=== PATIENT | male | born 1995 | race Caucasian/White ===

== ENCOUNTER 2017-01-10 08:53 | Inpatient (IN) | payer BC ==
[~2017-01-10] VITALS: Ht 188 cm; Wt 88.5 kg
--- NOTE | 2017-01-10 08:56 | NUR ---
Dr Reyes at the bedside for eval and exam.
[2017-01-10] MEDS ORDERED: IV NORMAL SALINE 1000 ML BAG IV ONE ×2 (09:00→10:15)
[2017-01-10 09:12] LABS: BASOPHILS % (AUTO) 0.8 % (0.0-2.0); EOSINOPHILS % (AUTO) 0.3 % (0.0-7.0); HEMATOCRIT 42.4 % (40-50); HEMOGLOBIN 14.3 G/DL (14.0-18.0); LYMPHOCYTES # (AUTO) 0.8 K/UL (0.8-4.8); LYMPHOCYTES % (AUTO) 17.5 % (20.5-51.5); MEAN CORPUSCULAR HEMOGLOBIN 29.1 UUG (27.0-31.0); MEAN CORPUSCULAR HGB CONC 34 g/dL (32.0-37.0); MEAN CORPUSCULAR VOLUME 86.6 FL (82.0-92.0); MONOCYTES # (AUTO) 0.3 K/UL (0.1-1.30); MONOCYTES % (AUTO) 6.2 % (0.0-11.0); NEUTROPHILS # (AUTO) 3.2 K/UL (1.8-8.9); NEUTROPHILS % (AUTO) 75.2 % (38.5-71.5); PLATELET COUNT (AUTO) 136 K/UL (150-450); RED BLOOD CELL COUNT(AUTO) 4.89 MIL/UL (4.7-6.1); WHITE BLOOD COUNT (AUTO) 4.4 K/UL (4.0-11.2)
[2017-01-10 09:19] LABS: CARBON DIOXIDE 29 mmol/L (21-32); CHLORIDE 102 mmol/L (98-107); CREATININE 1.6 mg/dL (0.6-1.3); GLUCOSE 260 mg/dL (74-106); POTASSIUM 3.4 mmol/L (3.5-5.1); UREA NITROGEN, BLOOD 26 mg/dL (7-18)
[2017-01-10 09:25] LABS: ALANINE AMINOTRANSFERASE 27 U/L (16-63); ALKALINE PHOSPHATASE 72 U/L (50-136); ASPARTATE AMINOTRANSFERASE 25 U/L (15-37); BILIRUBIN,DIRECT 0.2 mg/dL (0.0-0.2); TOTAL PROTEIN, SERUM 7.4 g/dL (6.4-8.2)
[2017-01-10 09:26] LABS: ACETAMINOPHEN < 2.0 ug/mL (10-30)
[2017-01-10] MEDS ORDERED: POTASSIUM BICARBONATE/CIT AC 25 MEQ TABLET.EFF PO ONE (10:00)
[2017-01-10] MEDS ORDERED: POTASSIUM BICARBONATE/CIT AC 25 MEQ TABLET.EFF ONE (10:13)
[2017-01-10 11:38] LABS: ETHANOL < 3 MG/DL (0-0)
--- NOTE | 2017-01-10 12:44 | NUR ---
Pt remaines lethergic but easily arousable, 02 sat decreased to 88% while off 02. MD aware. Place pt back on 02, sat increase to 95%. Will continue monitoring.
[2017-01-10 16:15] VITALS: BP 139/58
--- NOTE | 2017-01-10 16:20 | NUR ---
ADMITTED FROM [facility]IA ER WITH ADM DX OF DRUG OVERDOSE, ALERT AND ORIENTED X3 UP AND ABOUT IN ROOM WITH STEADY GAIT. FALL PRECAUTION REINFORCED
--- NOTE | 2017-01-10 16:22 | NUR ---
DR PEREIRA NOTIFIED OF ADMISSION
[2017-01-10] MEDS ORDERED: ONDANSETRON 4 MG/2 ML VIAL IV PRN (17:00)
[2017-01-10] MEDS ORDERED: LORAZEPAM 2 MG/1 ML VIAL IV PRN (17:30)
[2017-01-10] MEDS ORDERED: MORPHINE SULFATE 2 MG/1 ML DISP.SYRIN IV PRN (17:30)
[2017-01-10] MEDS ORDERED: ACETAMINOPHEN 325 MG TABLET PO PRN (17:30)
[2017-01-10] MEDS: POTASSIUM CHLORIDE 20 MEQ in IV 1/2NS 1000 ML 1,000 ML IV PRN (18:05)
[2017-01-10 20:36] VITALS: BP 114/55
--- NOTE | 2017-01-10 21:00 | NUR ---
A/A/O times 4 pleasant and coopertive, no distress noted or voiced
[2017-01-11 00:06] VITALS: BP 102/34
[2017-01-11] MEDS: POTASSIUM CHLORIDE 20 MEQ in IV 1/2NS 1000 ML 1,000 ML IV PRN (02:52)
[2017-01-11 04:00] VITALS: BP 102/39
--- NOTE | 2017-01-11 06:39 | NUR ---
Slept most of night no distress noted or voiced
[2017-01-11 07:16] LABS: BILIRUBIN,TOTAL 1.1 mg/dL (0.2-1.0); CREATININE 1.2 mg/dL (0.6-1.3); MAGNESIUM 1.9 mg/dL (1.8-2.4); PHOSPHOROUS 2.7 mg/dL (2.5-4.9); POTASSIUM 3.9 mmol/L (3.5-5.1); TOTAL PROTEIN, SERUM 6.1 g/dL (6.4-8.2)
[2017-01-11 07:22] LABS: BASOPHILS % (AUTO) 0.5 % (0.0-2.0); EOSINOPHILS # (AUTO) 0.1 K/uL (0.0-0.7); EOSINOPHILS % (AUTO) 1.4 % (0.0-7.0); HEMATOCRIT 37.1 % (36.7-47.1); HEMOGLOBIN 12.6 g/dL (12.5-16.3); LYMPHOCYTES # (AUTO) 1.4 K/uL (20.0-40.0); LYMPHOCYTES % (AUTO) 33.2 % (20.5-51.5); MEAN CORPUSCULAR HEMOGLOBIN 29.9 uug (23.8-33.4); MEAN CORPUSCULAR HGB CONC 34 g/dL (32.5-36.3); MEAN CORPUSCULAR VOLUME 87.6 fL (73.0-96.2); MONOCYTES # (AUTO) 0.4 K/uL (2.0-10.0); MONOCYTES % (AUTO) 9.1 % (0.0-11.0); NEUTROPHILS # (AUTO) 2.4 K/uL (1.8-8.9); NEUTROPHILS % (AUTO) 55.8 % (38.5-71.5); PLATELET COUNT (AUTO) 118 K/uL (152-348); RED BLOOD CELL COUNT(AUTO) 4.23 MIL/uL (4.06-5.63); WHITE BLOOD COUNT (AUTO) 4.3 K/uL (3.6-10.2)
--- NOTE | 2017-01-11 08:00 | NUR ---
patient stable, awake and oriented. no s/s distress. call light in reach. discussed with patient plan for possible discharge today. patient agreeable with plan of care
[2017-01-11 11:50] VITALS: BP 122/56
--- NOTE | 2017-01-11 11:57 | NUR ---
discharge instruction given to patient. patient verbalized understanding. patient instructed to follow up with primary care provider in one week. IV noted to be removed by patient and hanging on IV pole. no bleeding noted at site. when discussing discharge plan, patient stated he does not want to go back to the facility indicated in his discharge plan. RN discussed the situation with skilled nursing case manager. skilled nursing case manager spoke to patient and identified a sober living facility that patient stated he has arrangements with. patient stated he has transportation arranged. patient was instructed to notify staff when his ride arrived.
--- NOTE | 2017-01-11 13:00 | NUR ---
went to check on patient and noted that patient had already left without notifying staff. patient has all discharge paperwork and education.
== END 2017-01-11 13:00 | DRG 917 ==
LOC: ER 08:53 → TELE 15:59 → MED 01-11 11:23
PROVIDERS: ADMIT Internal Medicine; ATTEND Internal Medicine
DX: T40.1X1A Poisoning by heroin, accidental (unintentional), initial encounter (principal); J96.00 Acute respiratory failure, unspecified whether with hypoxia or hypercapnia; N17.0 Acute kidney failure with tubular necrosis; G92 Toxic encephalopathy; E87.6 Hypokalemia; F17.210 Nicotine dependence, cigarettes, uncomplicated; Y92.481 Parking lot as the place of occurrence of the external cause; Z87.74 Personal history of (corrected) congenital malformations of heart and circulatory system; R73.9 Hyperglycemia, unspecified
CPT/HCPCS: 36415; 70030-TC; 71010; 83735; 84100; 85025; 93005; A4663; G0480; G0480-TC; J3480; J3490; J7030